=== PATIENT | female | born 1965 | race Caucasian/White ===

== ENCOUNTER 2024-07-13 16:06 | Inpatient (IN) ==
--- NOTE | 2024-07-13 16:41 | ED.ABDFE ---
HPI Time Seen Time Seen by Provider: 07/13/24 16:31 PCP Primary Care Physician: HANNAH Car Complaint Doctors Chief Complaint Comments: 58-year-old female, history of coronary artery disease, surgical history of prior gastric sleeve, complains of 3 hours of bilateral lower abdominal pain, accompanied by constipation. Had 2 episodes of emesis just [employer]. States pain became severe broke out in a "cold sweat." Denies fever. Denies urinary symptoms. Denies other complaints. Chief Complaint:: Pt c/o sudden onset of severe intermittent lower abdominal cramping that started about an hour after eating lunch today. Pain is associated with nausea and two episodes of vomiting. Pt states that she has had a small bowel movement since she arrived at our hospital but has not had a bowel movement otherwise since 07/07/24. Denies any fever. Pt's sister did state that pt was diaphoretic when she arrived to her house and her BP was 160/110 so pt's sister gave her Clonidine 0.1mg po x 1 tablet approximately 30 minutes prior to arrival. COVID-19 Coronavirus risk:travel/contact w/high risk person: No Has patient experienced Coronavirus symptoms: No Source History Provided: Patient Mode of arrival Mode of Arrival: Wheelchair Timing Onset of Chief Complaint: 07/13/24 PMH PMH Past Medical History: Yes Past Medical History: Coronary Artery Disease, Diabetes, Dyslipidemia and Hypertension Past Surgical History: Yes Surgical History: Angioplasty/Stents and Past Surgical History Comment: gastric sleeve,retinal detachment repair, breast reduction, Family History History of Family Medical Conditions: Yes Family Medical History: Diabetes Mellitus, [place], Coronary Artery Disease and Hypertension Family Medical History Comment: cva Social History Does patient currently use any type of tobacco product: No Have you used tobacco products in the last 12 months: No Type of Tobacco Use: None Does any household member use tobacco: No Alcohol Use: None Do you use any recreational Drugs:: No Lives With: Family Lives Where: Home Travel Risk Coronavirus risk:travel/contact w/high risk person: No Has patient experienced Coronavirus symptoms: No Infectious screening In the last 2 months have you had wt loss of >10#?: NO Have you had fever, night sweats or hemotysis?: No Have you traveled outside the country in the last 6 months?: No Isolation: Standard ROS Review of Systems Gastrointestinal/Abdominal: Abdominal Pain (bilat lower), Constipation, Nausea and Vomiting (x2) PE Vital Signs Vitals: Vital Signs Temperature 98.0 F Pulse Rate 76 Pulse Rate 77 Pulse Rate 80 Pulse Rate 83 Pulse Rate 80 Pulse Rate 88 Respiratory Rate 20 Respiratory Rate 22 Respiratory Rate 22 Respiratory Rate 19 Respiratory Rate 20 Blood Pressure 155/85 Blood Pressure 148/79 Blood Pressure 147/67 Blood Pressure 193/101 Blood Pressure 177/101 Blood Pressure 161/97 O2 Sat by Pulse Oximetry 94 O2 Sat by Pulse Oximetry 95 O2 Sat by Pulse Oximetry 96 O2 Sat by Pulse Oximetry 99 O2 Sat by Pulse Oximetry 97 O2 Sat by Pulse Oximetry 91 General Limitations: No Limitations and Language Barrier General Appearance: Alert and In No Apparent Distress Head Head Exam: Normal Inspection Eyes Eye exam: Normal Appearance ENT ENT Exam: Normal Exam Neck Neck Exam: Normal Inspection Chest Chest Inspection: Normal Inspection Respiratory Respiratory Exam: Normal Lung Sounds Bilat Cardiovascular Cardiovascular Exam: Regular Rate and Normal Rhythm Abdominal Exam Abdominal Exam: Soft and Tenderness (bilat lower abd); negative Guarding or Rebound Rectal Rectal Exam: Deferred Back Back Exam: Normal Inspection Extremeties Extremities Exam: Normal Inspection Neurologic Neurological Exam: Alert and Oriented X3 Psychiatric Psychiatric Exam: Normal Affect and Normal Mood Skin Skin Exam: Warm, Dry and Intact ROR Labs Reviewed 07/13/24 16:40 07/13/24 16:40 Laboratory: WBC 24.6 X10^3/uL (3.6-10.0) H 07/13/24 16:40 RBC 5.54 X10^6/uL (3.5-5.4) H 07/13/24 16:40 Hgb 15.3 g/dL (12.0-16.0) 07/13/24 16:40 Hct 46.1 % (36.0-47.0) 07/13/24 16:40 MCV 83.2 fL (80.0-100.0) 07/13/24 16:40 MCH 27.6 pg (27.0-34.0) 07/13/24 16:40 MCHC 33.2 g/dL (33.0-35.0) 07/13/24 16:40 RDW 17.0 % (11.6-16.5) H 07/13/24 16:40 Plt Count 377 X10^3/uL (150.0-450.0) 07/13/24 16:40 Plt Count Comment Adequate (ADEQUATE) 07/13/24 16:40 MPV 8.4 fL (7.4-11.0) 07/13/24 16:40 Neut % (Auto) 83.4 % (42.0-75.0) H 07/13/24 16:40 Lymph % (Auto) 9.0 % (21.0-51.0) L 07/13/24 16:40 [place] % (Auto) 6.4 % (0.0-13.0) 07/13/24 16:40 Eos % (Auto) 0.6 % (0.9-2.9) L 07/13/24 16:40 Baso % (Auto) 0.6 % (0.2-1.0) 07/13/24 16:40 Neut # (Auto) 20.5 x10^3/uL (2.2-4.8) H 07/13/24 16:40 Lymph # (Auto) 2.2 X10^3/uL (1.3-2.9) 07/13/24 16:40 [place] # (Auto) 1.6 x10^3/uL (0.3-0.8) H 07/13/24 16:40 Eos # (Auto) 0.1 x10^3/uL (0.0-0.2) 07/13/24 16:40 Baso # (Auto) 0.2 X10^3/uL (0.0-0.1) H 07/13/24 16:40 Absolute Nucleated RBC 0.1 /100WBC 07/13/24 16:40 Total Counted 100 07/13/24 16:40 Neutrophils % (Manual) 81 % (39-76) H 07/13/24 16:40 Lymphocytes % (Manual) 11 % (13-43) L 07/13/24 16:40 Monocytes % (Manual) 8 % (4-9) 07/13/24 16:40 Plt Morphology Comment Normal (NORMAL) 07/13/24 16:40 RBC Morphology Abnormal (NORMAL) A 07/13/24 16:40 Anisocytosis Slight A 07/13/24 16:40 Sodium 143 mmol/L (136-145) 07/13/24 16:40 Corrected Sodium 144 mmol/L (136-145) 07/13/24 16:40 Potassium 3.5 mmol/L (3.5-5.1) 07/13/24 16:40 Chloride 106 mmol/L (98-107) 07/13/24 16:40 Carbon Dioxide 23.1 mmol/L (21-32) 07/13/24 16:40 BUN 26 mg/dL (7-18) H 07/13/24 16:40 Creatinine 1.27 mg/dL (0.55-1.02) H 07/13/24 16:40 Est GFR (MDRD) Af Amer 56 (>60) L 07/13/24 16:40 Est GFR (MDRD) Non-Af 46 (>60) L 07/13/24 16:40 Glucose 161 mg/dL (65-99) H 07/13/24 16:40 Calcium 9.9 mg/dL (8.5-10.1) 07/13/24 16:40 Corrected Calcium TNP 07/13/24 16:40 Total Bilirubin 0.50 mg/dL (0.2-1.0) 07/13/24 16:40 AST 31 Units/L (15-37) 07/13/24 16:40 ALT 37 Units/L (12-78) 07/13/24 16:40 Alkaline Phosphatase 89 Units/L (46-116) 07/13/24 16:40 Total Protein 7.9 g/dL (6.4-8.2) 07/13/24 16:40 Albumin 4.0 g/dL (3.4-5.0) 07/13/24 16:40 Globulin 3.9 g/dL (2.5-4.5) 07/13/24 16:40 Albumin/Globulin Ratio 1.0 Ratio (1.1-2.1) L 07/13/24 16:40 Amylase 43 Units/L (25-115) 07/13/24 16:40 Amylase Cancelled 07/13/24 16:40 Lipase 52 Units/L (16-77) 07/13/24 16:40 Specimen Type Clean catch urine 07/13/24 17:50 Urine Color Yellow (YELLOW) 07/13/24 17:50 Urine Appearance Clear (CLEAR) 07/13/24 17:50 Urine pH 6.0 (5.0 - 8.0) 07/13/24 17:50 Ur Specific [place] 1.010 (1.000-1.030) 07/13/24 17:50 Urine Protein 2+ (NEGATIVE) 07/13/24 17:50 Urine Glucose (UA) Negative (NEGATIVE) 07/13/24 17:50 Urine Ketones Negative (NEGATIVE) 07/13/24 17:50 Urine Blood 2+ (NEGATIVE) 07/13/24 17:50 Urine Nitrite Negative (NEGATIVE) 07/13/24 17:50 Urine Bilirubin Negative (NEGATIVE) 07/13/24 17:50 Urine Urobilinogen Normal (NORMAL) 07/13/24 17:50 Ur Leukocyte Esterase 1+ (NEGATIVE) 07/13/24 17:50 Urine RBC 5-10 /HPF (0-3) A 07/13/24 17:50 Urine WBC 3-5 /HPF (0-5) 07/13/24 17:50 Ur Squamous Epith Cells Few /HPF (NEGATIVE) 07/13/24 17:50 Ur Renal Epithelial Cell Few /HPF (NEGATIVE) 07/13/24 17:50 Urine Bacteria Trace /HPF (NEGATIVE) 07/13/24 17:50 Ur Culture Indicated? No/not indicated 07/13/24 17:50 Opioid Opioid Risk Tool Age ([place]uy box if 16-45): No History of Preadolescent Sexual Abuse: No Total: 0 Total Score Risk Category: Low Risk Copyright: Rolan PATEL predicting aberrant behaviors Discharge Plan Diagnosis Discharge Problem: Acute colitis, Leukocytosis Discharge Plan Patient Disposition: 09 ADMITTED INPATIENT Condition: Stable Prescriptions: No Action clonidine HCl 0.1 mg tablet 0.1 mg PO QDAY metformin 1,000 mg tablet 1,000 mg PO BID dextroamphetamine-amphetamine 20 mg tablet 1 tab PO BID etodolac 400 mg tablet 400 mg PO BID furosemide 20 mg tablet 20 mg PO BID lisinopril 40 mg tablet 40 mg PO QDAY fluoxetine 20 mg capsule 20 mg PO QDAY ezetimibe 10 mg tablet 10 mg PO QDAY rosuvastatin 20 mg tablet 20 mg PO QPM metoprolol tartrate 25 mg tablet 25 mg PO BID Ozempic 2 mg/dose (8 mg/3 mL) pen injector 2 mg SUBCUT QWEEK Patient Comments: [NO ORIGINAL SIG] Health Concerns: Post Hospitalization: new medications and changes needed to prevent readmission or further decline. Pt educated and given instructions on all concerns. Plan of Treatment: Continue with present treatment and follow up plan. Pt is to keep follow up appointment as instructed and take medications as ordered. Orders to Discharge Patient Discharge Orders: Transfer (Routine); Ordered 07/13/24 Ordered By: Dany Gonzales Follow ups/Referrals Follow ups/Referrals: Linda Diaz [Primary Care Provider] - 3 days Instructions Stand Alone Forms: Find Help Web Site, Post Hospital Follow Up Care ADDITIONAL NOTES Additional Notes Additional Notes: Admit to Dr Pinto at 1851PM
[2024-07-13] MEDS: MORPHINE SULFATE INJ 4 MG IVP ONE ×2 (16:57→19:33)
[2024-07-13] MEDS: NS 1,000 ML IV 1,000 ML IV ONE ×2 (16:58→19:12)
[2024-07-13] MEDS: ZOFRAN INJ 4 MG VIAL IVP ONE ×2 (16:58→19:33)
[2024-07-13 16:59] LABS: BASOPHILS # (AUTO) 0.2 X10^3/uL (0.0-0.1); BASOPHILS % (AUTO) 0.6 % (0.2-1.0)
[2024-07-13 17:09] LABS: ALANINE AMINOTRANSFERASE 37 Units/L (12-78); ALKALINE PHOSPHATASE 89 Units/L (46-116); AMYLASE 43 Units/L (25-115); ASPARTATE AMINO TRANSFERASE 31 Units/L (15-37); BLOOD UREA NITROGEN 26 mg/dL (7-18); CALCIUM 9.9 mg/dL (8.5-10.1); CARBON DIOXIDE 23.1 mmol/L (21-32); CHLORIDE 106 mmol/L (98-107); COR NA(FOR HYPERGLY) 144 mmol/L (136-145); CREATININE 1.27 mg/dL (0.55-1.02); GLUCOSE 161 mg/dL (65-99); LIPASE 52 Units/L (16-77); POTASSIUM 3.5 mmol/L (3.5-5.1); SODIUM 143 mmol/L (136-145); TOTAL PROTEIN 7.9 g/dL (6.4-8.2); eGFR NON BLACK RACES 46 (>60)
[2024-07-13 17:11] LABS: EOSINOPHILS # (AUTO) 0.1 x10^3/uL (0.0-0.2); EOSINOPHILS % (AUTO) 0.6 % (0.9-2.9); HEMATOCRIT 46.1 % (36.0-47.0); HEMOGLOBIN 15.3 g/dL (12.0-16.0); LYMPHOCYTES # (AUTO) 2.2 X10^3/uL (1.3-2.9); MEAN CORPUSCULAR HEMOGLOBIN 27.6 pg (27.0-34.0); MEAN CORPUSCULAR HGB CONC 33.2 g/dL (33.0-35.0); MEAN CORPUSCULAR VOLUME 83.2 fL (80.0-100.0); MEAN PLATELET VOLUME 8.4 fL (7.4-11.0); MONOCYTES # (AUTO) 1.6 x10^3/uL (0.3-0.8); MONOCYTES % (AUTO) 6.4 % (0.0-13.0); NEUTROPHILS # (AUTO) 20.5 x10^3/uL (2.2-4.8); NEUTROPHILS % (AUTO) 83.4 % (42.0-75.0); PLATELET COUNT 377 X10^3/uL (150.0-450.0); RED BLOOD COUNT 5.54 X10^6/uL (3.5-5.4); WHITE BLOOD COUNT 24.6 X10^3/uL (3.6-10.0)
[2024-07-13 17:24] LABS: ANISOCYTOSIS SLIGHT; PLATELET MORPHOLOGY COMMENT NORMAL (NORMAL)
[2024-07-13 18:01] LABS: BILIRUBIN,URINE NEGATIVE (NEGATIVE); BLOOD/HEMOGLOBIN,URINE 2+ (NEGATIVE); GLUCOSE, URINE NEGATIVE (NEGATIVE); KETONES,URINE NEGATIVE (NEGATIVE); LEUKOCYTE ESTERASE ,URINE 1+ (NEGATIVE); NITRITES,URINE NEGATIVE (NEGATIVE); PROTEIN,URINE 2+ (NEGATIVE); UROBILINOGEN,URINE NORMAL (NORMAL)
[2024-07-13 18:05] LABS: APPEARANCE,URINE CLEAR (CLEAR); COLOR,URINE YELLOW (YELLOW)
[2024-07-13 18:13] LABS: BACTERIA,URINE TRACE /HPF (NEGATIVE); RENAL EPITHELIAL CELLS,URINE FEW /HPF (NEGATIVE); SQUAMOUS EPITHELIAL CELL,UR FEW /HPF (NEGATIVE)
--- NOTE | 2024-07-13 18:23 | CT ---
EXAM: CT ABDOMEN AND PELVIS WITH INTRAVENOUS CONTRASTHISTORY: Abdominal pain. Nausea and vomiting.TECHNIQUE: Spiral axial CT images are obtained through the abdomen and pelvis without the administration of oral contrast and with administration of intravenous contrast. Additional coronal and sagittal reformatted images are reconstructed.COMPARISON: None available.FINDINGS:GASTROINTESTINAL TRACT: Status post gastric sleeve partial gastrectomy, without evidence for suture dehiscence.. There is circumferential thickening of the left-sided large bowel loops, from the distal transverse colon to the sigmoid colon, with pericolonic stranding, consistent with colitis; DDX includes ulcerative colitis and ischemic colitis in the appropriate clinical setting. Clinical correlation is advised. Abundant fluid is seen through the large bowel loops and rectum in keeping with impending diarrhea. No evidence for pneumatosis intestinalis, portal venous air or free intraperitoneal air. No evidence for bowel herniation, bowel obstruction, or diverticulitis. A normal-appearing appendix is seen.GENITOURINARY SYSTEM: The kidneys are unremarkable. There is no ureteral calculus or stigmata of obstructive uropathy. The urinary bladder is grossly unremarkable for a non-dedicated exam.REPRODUCTIVE SYSTEM: The uterus and adnexa appear grossly unremarkable for a CT scan. Consider follow-up dedicated imaging as clinically warranted.CT ABDOMEN: The liver, spleen, pancreas, adrenal glands, gallbladder, aorta, and inferior vena cava are within normal limits for a CT scan. There is no intra-abdominal or retroperitoneal lymphadenopathy, free fluid, or free air seen. No abdominal herniation is noted.CT PELVIS: No pelvic sidewall or inguinal lymphadenopathy is seen. No inguinal herniation is noted. No free fluid or free air is seen. There are multiple bilateral pelvic calcifications consistent with platelets.BONES AND JOINTS: The visualized bony structures are within normal limits.LUNG BASES: The lung bases are clear. There is suggestion of severe coronary atherosclerosis (especially LAD and left circumflex coronary artery); LAD stent in situ.IMPRESSION:1. Circumferential thickening of the left-sided large bowel loops, from the distal transverse colon to the sigmoid colon, with pericolonic stranding, consistent with colitis; DDX includes ulcerative colitis and ischemic colitis in the appropriate clinical setting. Clinical correlation is advised.2. Abundant fluid is seen through the large bowel loops and rectum in keeping with impending diarrhea.3. No evidence for pneumatosis intestinalis, bowel herniation, bowel obstruction, or diverticulitis.4. No evidence for pyelonephritis, renal stone disease or obstructive uropathy.5. No free fluid, free air, mass lesions, or lymphadenopathy seen.6. Suggestion of severe coronary atherosclerosis (especially LAD and left circumflex coronary artery); LAD stent in situ.THIS IS AN ELECTRONICALLY VERIFIED FINAL SNEWAR2907/13/2024 6:20 PM - Electronically signed by Roxane Pinon MD
[2024-07-13] MEDS: ROCEPHIN VIAL 1 GRAM 1 G in NS 100 ML IV 100 ML IV ONE (18:59)
[2024-07-13] MEDS: NS 250 ML IV 25 ML IV PRN (19:28)
[2024-07-13] MEDS: FLAGYL IV PREMIX 500 MG BAG 500 MG/100 ML BAG IV ONE (20:00)
[2024-07-13] MEDS: FLAGYL IV PREMIX 500 MG BAG 500 MG/100 ML BAG IV SCH (20:03)
[2024-07-13 20:50] VITALS: BMI 37.5
[2024-07-13] MEDS ORDERED: NovoLIN R (or HumuLIN R) SUBCUT PRN (20:59)
[2024-07-13] MEDS ORDERED: PATIENT'S HOME MEDICATION (Rosuvastatin 20 mg tablet) PO SCH (21:00)
[2024-07-13] MEDS: ZOFRAN INJ 4 MG VIAL IVP PRN (21:23)
[2024-07-13] MEDS: DILAUDID INJ IVP PRN (21:57)
[2024-07-14 04:36] LABS: BASOPHILS # (AUTO) 0.1 X10^3/uL (0.0-0.1); BASOPHILS % (AUTO) 0.6 % (0.2-1.0); EOSINOPHILS % (AUTO) 0.1 % (0.9-2.9); HEMATOCRIT 43.9 % (36.0-47.0); HEMOGLOBIN 14.8 g/dL (12.0-16.0); LYMPHOCYTES # (AUTO) 1.1 X10^3/uL (1.3-2.9); LYMPHOCYTES % (AUTO) 4.8 % (21.0-51.0); MEAN CORPUSCULAR HGB CONC 33.7 g/dL (33.0-35.0); MEAN CORPUSCULAR VOLUME 83.1 fL (80.0-100.0); MEAN PLATELET VOLUME 8.4 fL (7.4-11.0); MONOCYTES # (AUTO) 1.4 x10^3/uL (0.3-0.8); MONOCYTES % (AUTO) 6.2 % (0.0-13.0); NEUTROPHILS # (AUTO) 19.7 x10^3/uL (2.2-4.8); NEUTROPHILS % (AUTO) 88.3 % (42.0-75.0); PLATELET COUNT 299 X10^3/uL (150.0-450.0); RED BLOOD COUNT 5.28 X10^6/uL (3.5-5.4); WHITE BLOOD COUNT 22.3 X10^3/uL (3.6-10.0)
[2024-07-14 04:44] LABS: ALANINE AMINOTRANSFERASE 27 Units/L (12-78); ALBUMIN 3.3 g/dL (3.4-5.0); ALKALINE PHOSPHATASE 75 Units/L (46-116); ASPARTATE AMINO TRANSFERASE 22 Units/L (15-37); BLOOD UREA NITROGEN 22 mg/dL (7-18); CALCIUM 8.8 mg/dL (8.5-10.1); CHLORIDE 110 mmol/L (98-107); COR CA(FOR HYPOALB) 9.4 mg/dL (8.5-10.1); COR NA(FOR HYPERGLY) 148 mmol/L (136-145); CREATININE 1.07 mg/dL (0.55-1.02); GLUCOSE 150 mg/dL (65-99); POTASSIUM 3.8 mmol/L (3.5-5.1); SODIUM 147 mmol/L (136-145); TOTAL PROTEIN 6.8 g/dL (6.4-8.2); eGFR NON BLACK RACES 56 (>60)
[2024-07-14 05:39] LABS: BAND NEUTROPHILS % 1 % (0-10); PLATELET MORPHOLOGY COMMENT NORMAL (NORMAL)
[2024-07-14 05:40] LABS: ANISOCYTOSIS SLIGHT
[2024-07-14] MEDS: OMNIPAQUE 350 mg/mL 100 mL BTL 100 ML ONE (05:49)
[2024-07-14] MEDS: NS 100 ML IV 100 ML ONE (05:50)
[2024-07-14] MEDS: NS 250 ML IV 250 ML IV ONE (05:50)
[2024-07-14] MEDS: NS 1,000 ML IV 1,000 ML IV SCH (06:18)
[2024-07-14] MEDS: NS 1,000 ML IV 1,000 ML with MAGNESIUM SULFATE 50% INJ VIAL 1 G IV SCH (08:49)
[2024-07-14] MEDS ORDERED: K-DUR TAB 20 MEQ PO SCH (09:00)
[2024-07-14] MEDS ORDERED: MAG-OX TAB PO SCH (09:00)
[2024-07-14] MEDS: CONSULT PHARMACY - POTASSIUM & MAGNESIUM XX SCH (12:06)
--- NOTE | 2024-07-14 13:00 | DR.H&P ---
H&P History & Physical for Day of: H&P Date: 07/14/24 Chief Complaint Chief Complaint: Abdominal pain History of Present Illness History of Present Illness: Patient presented to the ER from home yesterday due to worsening abdominal pain. Found to be septic secondary to a left-sided colitis. She reports she has had approximately a week of intermittent diarrhea, constipation, abdominal fullness, abdominal pain, and malaise. No fevers, chills, vision changes, hematuria, hematochezia, or vomiting. She is still hurt in her abdomen this morning but feels better overall. White count is trending down with improvement in her creatinine. Multiple electrolyte derangements with continued tachycardia. ROS: 12 point ROS negative except as noted in HPI. Vitals, imaging, and labs reviewed. PE: WD, WN, obese female in NAD. Resting comfortably in bed. Hearing intact conversation. Head NCAT. EOMI. Mucous membranes dry. Heart regular rate and rhythm. Lungs are clear with strong speech. Bowel sounds were normoactive. Belly is diffusely tender. It is soft but distended. Mood affect appropriate. Able to move all extremities equally well. No edema. Past Medical History Past Medical History: Coronary Artery Disease, Diabetes, Dyslipidemia and Hypertension Past Surgical History Surgical History: Angioplasty/Stents (LAD 2015) and Family History Family Medical History: Diabetes Mellitus (Type I, sister, living), [place] and Coronary Artery Disease Social History Does patient currently use any type of tobacco product: No Have you used tobacco products in the last 12 months: No Type of Tobacco Use: None Does any household member use tobacco: No Alcohol Use: None Drug Use: None Medications Home Medications: Home Medications Medication Instructions Recorded Confirmed Type clonidine HCl 0.1 mg tablet 0.1 mg PO QDAY 07/13/24 07/13/24 History dextroamphetamine-amphetamine 20 1 tab PO BID 07/13/24 07/13/24 History mg tablet etodolac 400 mg tablet 400 mg PO BID 07/13/24 07/13/24 History ezetimibe 10 mg tablet 10 mg PO QDAY 07/13/24 07/13/24 History fluoxetine 20 mg capsule 20 mg PO QDAY 07/13/24 07/13/24 History furosemide 20 mg tablet 20 mg PO BID 07/13/24 07/13/24 History lisinopril 40 mg tablet 40 mg PO QDAY 07/13/24 07/13/24 History metformin 1,000 mg tablet 1,000 mg PO BID 07/13/24 07/13/24 History metoprolol tartrate 25 mg tablet 25 mg PO BID 07/13/24 07/13/24 History rosuvastatin 20 mg tablet 20 mg PO QPM 07/13/24 07/13/24 History semaglutide 2 mg/dose (8 mg/3 mL) 2 mg subcut QWEEK 07/13/24 07/13/24 History subcutaneous pen injector (Ozempic) Allergies Allergies Allergy/AdvReac Type Severity Reaction Status Date / Time No Known Drug Allergies Allergy Verified 02/07/19 08:25 Labs 07/14/24 04:06 07/14/24 04:06 Labs: Laboratory WBC 22.3 X10^3/uL (3.6-10.0) H 07/14/24 04:06 RBC 5.28 X10^6/uL (3.5-5.4) 07/14/24 04:06 Hgb 14.8 g/dL (12.0-16.0) 07/14/24 04:06 Hct 43.9 % (36.0-47.0) 07/14/24 04:06 MCV 83.1 fL (80.0-100.0) 07/14/24 04:06 MCH 28.0 pg (27.0-34.0) 07/14/24 04:06 MCHC 33.7 g/dL (33.0-35.0) 07/14/24 04:06 RDW 17.0 % (11.6-16.5) H 07/14/24 04:06 Plt Count 299 X10^3/uL (150.0-450.0) 07/14/24 04:06 Plt Count Comment Adequate (ADEQUATE) 07/14/24 04:06 MPV 8.4 fL (7.4-11.0) 07/14/24 04:06 Neut % (Auto) 88.3 % (42.0-75.0) H 07/14/24 04:06 Lymph % (Auto) 4.8 % (21.0-51.0) L 07/14/24 04:06 [place] % (Auto) 6.2 % (0.0-13.0) 07/14/24 04:06 Eos % (Auto) 0.1 % (0.9-2.9) L 07/14/24 04:06 Baso % (Auto) 0.6 % (0.2-1.0) 07/14/24 04:06 Neut # (Auto) 19.7 x10^3/uL (2.2-4.8) H 07/14/24 04:06 Lymph # (Auto) 1.1 X10^3/uL (1.3-2.9) L 07/14/24 04:06 [place] # (Auto) 1.4 x10^3/uL (0.3-0.8) H 07/14/24 04:06 Eos # (Auto) 0.0 x10^3/uL (0.0-0.2) 07/14/24 04:06 Baso # (Auto) 0.1 X10^3/uL (0.0-0.1) 07/14/24 04:06 Absolute Nucleated RBC 0.1 /100WBC 07/14/24 04:06 Total Counted 100 07/14/24 04:06 Neutrophils % (Manual) 86 % (39-76) H 07/14/24 04:06 Band Neutrophils % 1 % (0-10) 07/14/24 04:06 Lymphocytes % (Manual) 6 % (13-43) L 07/14/24 04:06 Monocytes % (Manual) 7 % (4-9) 07/14/24 04:06 Plt Morphology Comment Normal (NORMAL) 07/14/24 04:06 RBC Morphology Abnormal (NORMAL) A 07/14/24 04:06 Anisocytosis Slight A 07/14/24 04:06 Sodium 147 mmol/L (136-145) H 07/14/24 04:06 Corrected Sodium 148 mmol/L (136-145) H 07/14/24 04:06 Potassium 3.8 mmol/L (3.5-5.1) 07/14/24 04:06 Chloride 110 mmol/L (98-107) H 07/14/24 04:06 Carbon Dioxide 25.0 mmol/L (21-32) 07/14/24 04:06 BUN 22 mg/dL (7-18) H 07/14/24 04:06 Creatinine 1.07 mg/dL (0.55-1.02) H 07/14/24 04:06 Est GFR (MDRD) Af Amer > 60 (>60) 07/14/24 04:06 Est GFR (MDRD) Non-Af 56 (>60) L 07/14/24 04:06 Glucose 150 mg/dL (65-99) H 07/14/24 04:06 POC Glucose (mg/dL) 144 mg/dL (65-99) H 07/14/24 05:28 Calcium 8.8 mg/dL (8.5-10.1) 07/14/24 04:06 Corrected Calcium 9.4 mg/dL (8.5-10.1) 07/14/24 04:06 Magnesium 1.8 mg/dL (2.0-2.9) L 07/14/24 04:06 Total Bilirubin 0.40 mg/dL (0.2-1.0) 07/14/24 04:06 AST 22 Units/L (15-37) 07/14/24 04:06 ALT 27 Units/L (12-78) 07/14/24 04:06 Alkaline Phosphatase 75 Units/L (46-116) 07/14/24 04:06 Total Protein 6.8 g/dL (6.4-8.2) 07/14/24 04:06 Albumin 3.3 g/dL (3.4-5.0) L 07/14/24 04:06 Globulin 3.5 g/dL (2.5-4.5) 07/14/24 04:06 Albumin/Globulin Ratio 0.9 Ratio (1.1-2.1) L 07/14/24 04:06 Amylase 43 Units/L (25-115) 07/13/24 16:40 Amylase Cancelled 07/13/24 16:40 Lipase 52 Units/L (16-77) 07/13/24 16:40 Specimen Type Clean catch urine 07/13/24 17:50 Urine Color Yellow (YELLOW) 07/13/24 17:50 Urine Appearance Clear (CLEAR) 07/13/24 17:50 Urine pH 6.0 (5.0 - 8.0) 07/13/24 17:50 Ur Specific [place] 1.010 (1.000-1.030) 07/13/24 17:50 Urine Protein 2+ (NEGATIVE) 07/13/24 17:50 Urine Glucose (UA) Negative (NEGATIVE) 07/13/24 17:50 Urine Ketones Negative (NEGATIVE) 07/13/24 17:50 Urine Blood 2+ (NEGATIVE) 07/13/24 17:50 Urine Nitrite Negative (NEGATIVE) 07/13/24 17:50 Urine Bilirubin Negative (NEGATIVE) 07/13/24 17:50 Urine Urobilinogen Normal (NORMAL) 07/13/24 17:50 Ur Leukocyte Esterase 1+ (NEGATIVE) 07/13/24 17:50 Urine RBC 5-10 /HPF (0-3) A 07/13/24 17:50 Urine WBC 3-5 /HPF (0-5) 07/13/24 17:50 Ur Squamous Epith Cells Few /HPF (NEGATIVE) 07/13/24 17:50 Ur Renal Epithelial Cell Few /HPF (NEGATIVE) 07/13/24 17:50 Urine Bacteria Trace /HPF (NEGATIVE) 07/13/24 17:50 Ur Culture Indicated? No/not indicated 07/13/24 17:50 Physical Exam Vital Signs: Vital Signs Temperature 98.1 F Pulse Rate [Left Brachial] 101 Respiratory Rate 18 Respiratory Rate 18 Respiratory Rate 18 Respiratory Rate 18 Blood Pressure [Left Arm] 136/78 O2 Sat by Pulse Oximetry 95 Assessment/Plan (1) Severe sepsis: Narrative Support Text: Leukocytosis, tachycardia, colitis, MCKENZIE. IV Cipro and Flagyl. IV fluids. She is improving. P.o. [place] and IV Dilaudid for pain control. Also will rotate and IV Toradol based on creatinine. Status: Acute (2) Acute kidney injury: Narrative Support Text: Resolved. Continue fluids, both p.o. and IV Status: Acute (3) Acute colitis: Narrative Support Text: See above. Status: Acute (4) Atherosclerotic heart disease of [place] coronary artery without angina pectoris: Qualifiers: [place] vs. transplanted heart: [place] heart Qualified Code(s): I25.10 - Atherosclerotic heart disease of [place] coronary artery without angina pectoris Narrative Support Text: Monitor for changes. Continue home medications. 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 SSI as needed. Weight loss needed. Status: Chronic (6) Essential (primary) hypertension: Narrative Support Text: Resume home medications tomorrow. Status: Chronic (7) Morbid obesity: Narrative Support Text: Diabetic diet Status: Chronic
[2024-07-14] MEDS: SNACK - Diabetic Appropriate PO SCH (20:13)
[2024-07-14] MEDS: CIPRO IV 400 MG PREMIX* 400 MG/200 ML IV.SOLN. IV SCH (20:13)
[2024-07-14] MEDS: NS 500 ML IV 500 ML IV PRN (20:14)
[2024-07-14] MEDS: CRESTOR TAB 10 MG PO SCH (20:14)
[2024-07-15 05:43] LABS: BASOPHILS # (AUTO) 0.1 X10^3/uL (0.0-0.1); BASOPHILS % (AUTO) 0.4 % (0.2-1.0); EOSINOPHILS # (AUTO) 0.1 x10^3/uL (0.0-0.2); EOSINOPHILS % (AUTO) 0.6 % (0.9-2.9); HEMATOCRIT 33.9 % (36.0-47.0); HEMOGLOBIN 11.3 g/dL (12.0-16.0); LYMPHOCYTES # (AUTO) 1.3 X10^3/uL (1.3-2.9); LYMPHOCYTES % (AUTO) 7.7 % (21.0-51.0); MEAN CORPUSCULAR HEMOGLOBIN 27.6 pg (27.0-34.0); MEAN CORPUSCULAR HGB CONC 33.4 g/dL (33.0-35.0); MEAN CORPUSCULAR VOLUME 82.6 fL (80.0-100.0); MEAN PLATELET VOLUME 8.2 fL (7.4-11.0); MONOCYTES % (AUTO) 6.2 % (0.0-13.0); NEUTROPHILS # (AUTO) 14.2 x10^3/uL (2.2-4.8); NEUTROPHILS % (AUTO) 85.1 % (42.0-75.0); PLATELET COUNT 228 X10^3/uL (150.0-450.0); RED CELL DISTRIBUTION WIDTH 16.9 % (11.6-16.5); WHITE BLOOD COUNT 16.7 X10^3/uL (3.6-10.0)
[2024-07-15 05:45] LABS: ALANINE AMINOTRANSFERASE 19 Units/L (12-78); ALBUMIN 2.5 g/dL (3.4-5.0); ALKALINE PHOSPHATASE 58 Units/L (46-116); ASPARTATE AMINO TRANSFERASE 19 Units/L (15-37); BLOOD UREA NITROGEN 8 mg/dL (7-18); CALCIUM 7.9 mg/dL (8.5-10.1); CARBON DIOXIDE 27.2 mmol/L (21-32); CHLORIDE 106 mmol/L (98-107); COR CA(FOR HYPOALB) 9.1 mg/dL (8.5-10.1); COR NA(FOR HYPERGLY) 143 mmol/L (136-145); CREATININE 0.76 mg/dL (0.55-1.02); GLUCOSE 125 mg/dL (65-99); MAGNESIUM 2.1 mg/dL (2.0-2.9); POTASSIUM 3.5 mmol/L (3.5-5.1); SODIUM 142 mmol/L (136-145); TOTAL PROTEIN 5.7 g/dL (6.4-8.2); eGFR NON BLACK RACES > 60 (>60)
[2024-07-15] MEDS: K-DUR TAB 20 MEQ PO SCH (08:44)
[2024-07-15] MEDS ORDERED: MAG-OX TAB PO SCH (09:00)
[2024-07-15] MEDS: OFIRMEV IV 1000 MG VIAL 750 MG/75 ML VIAL IV PRN (09:14)
[2024-07-15] MEDS: NS 1,000 ML IV 1,000 ML IV SCH (11:49)
[2024-07-15] MEDS: LASIX PO SCH (16:16)
[2024-07-15] MEDS: CONSULT PHARMACY - POTASSIUM & MAGNESIUM XX SCH (17:49)
--- NOTE | 2024-07-15 18:32 | NOTE.SOAP ---
Soap Note Note for Day of Date of Exam: 07/15/24 Subjective Data Subjective Data: Seen with nurse and for AM rounds. No overnight events. BP and HR starting to rise. SCR normal with WBCs improving. Belly less sore and ambulating more. No diarrhea or N/V. Objective Data Objective Data: WD, WN, obese female in NAD. Hearing grossly intact. Belly less TTP, BS softened, non-distended. RRR. CTA b/l. BUE with non-pitting edema. Assessment Assessment: 1. Severe sepsis due to acute colitis (bacteria vs viral)- Improving. Continue Cipro and Flagyl. Wean down IVFs and start PO replacement. 2. CAD- monitor for changes 3. MCKENZIE- resolved. PO fluids. 4. DM2- hold Ozempic and metformin for now. SSI prn. Advance diet.
[2024-07-15] MEDS: LOPRESSOR TAB 25 MG PO SCH (20:28)
[2024-07-16 03:51] VITALS: RESP 19; O2SAT 96
[2024-07-16 05:37] LABS: BASOPHILS # (AUTO) 0.1 X10^3/uL (0.0-0.1); BASOPHILS % (AUTO) 0.7 % (0.2-1.0); EOSINOPHILS # (AUTO) 0.2 x10^3/uL (0.0-0.2); EOSINOPHILS % (AUTO) 1.4 % (0.9-2.9); HEMATOCRIT 30.3 % (36.0-47.0); HEMOGLOBIN 10.2 g/dL (12.0-16.0); LYMPHOCYTES # (AUTO) 1.7 X10^3/uL (1.3-2.9); LYMPHOCYTES % (AUTO) 13.3 % (21.0-51.0); MEAN CORPUSCULAR HEMOGLOBIN 27.7 pg (27.0-34.0); MEAN CORPUSCULAR HGB CONC 33.5 g/dL (33.0-35.0); MEAN CORPUSCULAR VOLUME 82.8 fL (80.0-100.0); MEAN PLATELET VOLUME 8.2 fL (7.4-11.0); MONOCYTES # (AUTO) 0.8 x10^3/uL (0.3-0.8); MONOCYTES % (AUTO) 6.6 % (0.0-13.0); NEUTROPHILS # (AUTO) 9.8 x10^3/uL (2.2-4.8); PLATELET COUNT 213 X10^3/uL (150.0-450.0); RED BLOOD COUNT 3.66 X10^6/uL (3.5-5.4); RED CELL DISTRIBUTION WIDTH 16.5 % (11.6-16.5); WHITE BLOOD COUNT 12.6 X10^3/uL (3.6-10.0)
[2024-07-16 05:51] LABS: ALANINE AMINOTRANSFERASE 21 Units/L (12-78); ALBUMIN 2.4 g/dL (3.4-5.0); ALKALINE PHOSPHATASE 54 Units/L (46-116); ASPARTATE AMINO TRANSFERASE 18 Units/L (15-37); BLOOD UREA NITROGEN 4 mg/dL (7-18); CARBON DIOXIDE 27.9 mmol/L (21-32); CHLORIDE 110 mmol/L (98-107); COR CA(FOR HYPOALB) 9.3 mg/dL (8.5-10.1); CREATININE 0.82 mg/dL (0.55-1.02); GLUCOSE 102 mg/dL (65-99); POTASSIUM 3.5 mmol/L (3.5-5.1); SODIUM 145 mmol/L (136-145); TOTAL PROTEIN 5.6 g/dL (6.4-8.2); eGFR NON BLACK RACES > 60 (>60)
[2024-07-16] MEDS ORDERED: CONSULT PHARMACY - POTASSIUM & MAGNESIUM XX SCH (06:00)
[2024-07-16 07:55] VITALS: BP 132/66; PULSE 80; TEMP 97.4
[2024-07-16] MEDS: CATAPRES TAB 0.1 MG PO SCH (10:05)
[2024-07-16] MEDS: ZESTRIL TAB 40 MG PO SCH (10:05)
[2024-07-16] MEDS: ZETIA TAB 10 MG PO SCH (10:06)
[2024-07-16] MEDS: K-DUR TAB 20 MEQ PO SCH (10:06)
[2024-07-16] MEDS: PROzac PO SCH (10:06)
--- NOTE | 2024-07-17 08:32 | PCM.DCPLAN ---
DISCHARGE SUMMARY Admission Date Date of Admission: 08/10/24 Discharge Date Discharge Date: 07/16/24 Admission Diagnoses (1) Severe sepsis: Status: Resolved (2) Acute kidney injury: Status: Resolved (3) Acute colitis: Status: Acute (4) Atherosclerotic heart disease of [place] coronary artery without angina pectoris: Status: Chronic (5) Type 2 diabetes mellitus without complications: Status: Chronic (6) Essential (primary) hypertension: Status: Chronic (7) Morbid obesity: Status: Chronic Discharge Medications Discharge Medications: Home Medication List clonidine HCl 0.1 mg tablet 0.1 mg PO QDAY 07/13/24 [History] dextroamphetamine-amphetamine 20 mg tablet 1 tab PO BID 07/13/24 [History] etodolac 400 mg tablet 400 mg PO BID 07/13/24 [History] ezetimibe 10 mg tablet 10 mg PO QDAY 07/13/24 [History] fluoxetine 20 mg capsule 20 mg PO QDAY 07/13/24 [History] furosemide 20 mg tablet 20 mg PO BID 07/13/24 [History] lisinopril 40 mg tablet 40 mg PO QDAY 07/13/24 [History] metformin 1,000 mg tablet 1,000 mg PO BID 07/13/24 [History] metoprolol tartrate 25 mg tablet 25 mg PO BID 07/13/24 [History] rosuvastatin 20 mg tablet 20 mg PO QPM 07/13/24 [History] semaglutide 2 mg/dose (8 mg/3 mL) subcutaneous pen injector (Ozempic) 2 mg subcut QWEEK 07/13/24 [History] Prescriptions: Hospital Course Vital Signs: Vital Signs Temperature 97.4 F Temperature 98.8 F Pulse Rate [Left Brachial] 80 Pulse Rate [Left Brachial] 74 Respiratory Rate 19 Respiratory Rate 19 Blood Pressure [Left Arm] 132/66 Blood Pressure [Left Arm] 137/78 O2 Sat by Pulse Oximetry 96 O2 Sat by Pulse Oximetry 96 Latest Lab Results: Laboratory Last Values WBC 12.6 X10^3/uL (3.6-10.0) H 07/16/24 04:58 RBC 3.66 X10^6/uL (3.5-5.4) 07/16/24 04:58 Hgb 10.2 g/dL (12.0-16.0) L 07/16/24 04:58 Hct 30.3 % (36.0-47.0) L 07/16/24 04:58 MCV 82.8 fL (80.0-100.0) 07/16/24 04:58 MCH 27.7 pg (27.0-34.0) 07/16/24 04:58 MCHC 33.5 g/dL (33.0-35.0) 07/16/24 04:58 RDW 16.5 % (11.6-16.5) 07/16/24 04:58 Plt Count 213 X10^3/uL (150.0-450.0) 07/16/24 04:58 Plt Count Comment Adequate (ADEQUATE) 07/14/24 04:06 MPV 8.2 fL (7.4-11.0) 07/16/24 04:58 Neut % (Auto) 78.0 % (42.0-75.0) H 07/16/24 04:58 Lymph % (Auto) 13.3 % (21.0-51.0) L 07/16/24 04:58 [place] % (Auto) 6.6 % (0.0-13.0) 07/16/24 04:58 Eos % (Auto) 1.4 % (0.9-2.9) 07/16/24 04:58 Baso % (Auto) 0.7 % (0.2-1.0) 07/16/24 04:58 Neut # (Auto) 9.8 x10^3/uL (2.2-4.8) H 07/16/24 04:58 Lymph # (Auto) 1.7 X10^3/uL (1.3-2.9) 07/16/24 04:58 [place] # (Auto) 0.8 x10^3/uL (0.3-0.8) 07/16/24 04:58 Eos # (Auto) 0.2 x10^3/uL (0.0-0.2) 07/16/24 04:58 Baso # (Auto) 0.1 X10^3/uL (0.0-0.1) 07/16/24 04:58 Absolute Nucleated RBC 0.0 /100WBC 07/16/24 04:58 Total Counted 100 07/14/24 04:06 Neutrophils % (Manual) 86 % (39-76) H 07/14/24 04:06 Band Neutrophils % 1 % (0-10) 07/14/24 04:06 Lymphocytes % (Manual) 6 % (13-43) L 07/14/24 04:06 Monocytes % (Manual) 7 % (4-9) 07/14/24 04:06 Plt Morphology Comment Normal (NORMAL) 07/14/24 04:06 RBC Morphology Abnormal (NORMAL) A 07/14/24 04:06 Anisocytosis Slight A 07/14/24 04:06 Sodium 145 mmol/L (136-145) 07/16/24 04:58 Corrected Sodium TNP 07/16/24 04:58 Potassium 3.5 mmol/L (3.5-5.1) 07/16/24 04:58 Chloride 110 mmol/L (98-107) H 07/16/24 04:58 Carbon Dioxide 27.9 mmol/L (21-32) 07/16/24 04:58 BUN 4 mg/dL (7-18) L 07/16/24 04:58 Creatinine 0.82 mg/dL (0.55-1.02) 07/16/24 04:58 Est GFR (MDRD) Af Amer > 60 (>60) 07/16/24 04:58 Est GFR (MDRD) Non-Af > 60 (>60) 07/16/24 04:58 Glucose 102 mg/dL (65-99) H 07/16/24 04:58 POC Glucose (mg/dL) 89 mg/dL (65-99) 07/16/24 05:26 Calcium 8.0 mg/dL (8.5-10.1) L 07/16/24 04:58 Corrected Calcium 9.3 mg/dL (8.5-10.1) 07/16/24 04:58 Magnesium 2.1 mg/dL (2.0-2.9) 07/16/24 04:58 Total Bilirubin 0.30 mg/dL (0.2-1.0) 07/16/24 04:58 AST 18 Units/L (15-37) 07/16/24 04:58 ALT 21 Units/L (12-78) 07/16/24 04:58 Alkaline Phosphatase 54 Units/L (46-116) 07/16/24 04:58 Total Protein 5.6 g/dL (6.4-8.2) L 07/16/24 04:58 Albumin 2.4 g/dL (3.4-5.0) L 07/16/24 04:58 Globulin 3.2 g/dL (2.5-4.5) 07/16/24 04:58 Albumin/Globulin Ratio 0.8 Ratio (1.1-2.1) L 07/16/24 04:58 Amylase 43 Units/L (25-115) 07/13/24 16:40 Amylase Cancelled 07/13/24 16:40 Lipase 52 Units/L (16-77) 07/13/24 16:40 Specimen Type Clean catch urine 07/13/24 17:50 Urine Color Yellow (YELLOW) 07/13/24 17:50 Urine Appearance Clear (CLEAR) 07/13/24 17:50 Urine pH 6.0 (5.0 - 8.0) 07/13/24 17:50 Ur Specific [place] 1.010 (1.000-1.030) 07/13/24 17:50 Urine Protein 2+ (NEGATIVE) 07/13/24 17:50 Urine Glucose (UA) Negative (NEGATIVE) 07/13/24 17:50 Urine Ketones Negative (NEGATIVE) 07/13/24 17:50 Urine Blood 2+ (NEGATIVE) 07/13/24 17:50 Urine Nitrite Negative (NEGATIVE) 07/13/24 17:50 Urine Bilirubin Negative (NEGATIVE) 07/13/24 17:50 Urine Urobilinogen Normal (NORMAL) 07/13/24 17:50 Ur Leukocyte Esterase 1+ (NEGATIVE) 07/13/24 17:50 Urine RBC 5-10 /HPF (0-3) A 07/13/24 17:50 Urine WBC 3-5 /HPF (0-5) 07/13/24 17:50 Ur Squamous Epith Cells Few /HPF (NEGATIVE) 07/13/24 17:50 Ur Renal Epithelial Cell Few /HPF (NEGATIVE) 07/13/24 17:50 Urine Bacteria Trace /HPF (NEGATIVE) 07/13/24 17:50 Ur Culture Indicated? No/not indicated 07/13/24 17:50 Hospital Course: Patient admitted through the ER from home due to worsening abdominal pain. Found to be severely septic with MCKENZIE from colitis. Started on IV Cipro and Flagyl with good response. At time of discharge she was tolerating p.o. fluids, p.o. nutrition, ambulating around the room, and had a normal BM. She is discharging home in improved, stable condition for follow-up with her PCP and GI. She will be discharged on Cipro and Flagyl.
== END 2024-07-16 10:30 | disposition home or self-care (01) | DRG 392 ==
LOC: ER 16:06 → MED/SURG 18:51
PROVIDERS: ADMIT Internal Medicine; ATTEND Internal Medicine
DX: I25.10 Atherosclerotic heart disease of native coronary artery without angina pectoris; N17.8 Other acute kidney failure; E83.42 Hypomagnesemia; K52.89 Other specified noninfective gastroenteritis and colitis; E66.01 Morbid (severe) obesity due to excess calories; R00.0 Tachycardia, unspecified; R10.84 Generalized abdominal pain; Z98.84 Bariatric surgery status; E78.5 Hyperlipidemia, unspecified; Z68.39 Body mass index [BMI] 39.0-39.9, adult; I10 Essential (primary) hypertension; E11.65 Type 2 diabetes mellitus with hyperglycemia